=== PATIENT | male | born 1985 | race African-American/Black ===

== ENCOUNTER 2024-06-11 08:05 | Emergency (ER) | payer MEDICAID, OTHER ==
[~2024-06-11] VITALS: Ht 152.4 cm; Wt 84.0 kg
[2024-06-11 08:07] VITALS: O2SAT 98
[2024-06-11] MEDS ORDERED: AMOX1TAB16 MT (08:49)
[2024-06-11 09:10] VITALS: BP 138/81; PULSE 88; RESP 18; TEMP 37.00296; O2SAT 98
== END 2024-06-11 09:10 | disposition home or self-care (01) ==
LOC: ER 08:05
DX: S60.519A Abrasion of unspecified hand, initial encounter (principal); X58.XXXA Exposure to other specified factors, initial encounter; Y93.89 Activity, other specified; Y92.89 Other specified places as the place of occurrence of the external cause; Y99.8 Other external cause status
CPT/HCPCS: 99283